=== PATIENT | female | born 1990 | race Caucasian/White ===

== ENCOUNTER 2020-10-28 17:20 | Emergency (ER) | payer OTHER, SELFPAY ==
[2020-10-28 17:35] VITALS: BP 126/87; PULSE 65; RESP 21; TEMP 37.3; O2SAT 100
--- NOTE | 2020-10-28 17:37 | ED.GENADULT ---
HPI - General Adult General Chief complaint: Dental/Oral Stated complaint: tooth pain Time Seen by Provider: 10/28/20 17:37 Source: patient Mode of arrival: ambulatory Limitations: no limitations History of Present Illness HPI narrative: 30-year-old female patient presents to the [facility] complaints of left upper dental pain for the past 2 to 3 days. Patient states she has had issues with dental infections before in the past. Patient was told by her dentist that she needed to have this tooth cut out by an oral surgeon but states it was not bothering her at the time so she never dealt with it. Patient states she has been taking ibuprofen for her pain. Denies any fevers, body aches or chills. Related Data Home Medications Medication Instructions Recorded Confirmed sertraline 50 mg PO DAILY 10/28/20 10/28/20 Allergies Allergy/AdvReac Type Severity Reaction Status Date / Time No Known Allergies Allergy Verified 10/28/20 17:29 Review of Systems Review of Systems: Narrative: CONSTITUTIONAL: Denies fever, chills, or sweats. EYES: Denies visual changes, redness, or discharge. ENT: Denies rhinorrhea, congestion, sore throat, or otalgia. Positive left upper dental pain x2 to 3 days CARDIOVASCULAR: Denies chest pain, palpitations, or edema. RESPIRATORY: Denies cough or dyspnea. GASTROINTESTINAL: Denies abdominal pain, nausea, vomiting, or diarrhea. GENITOURINARY: Denies dysuria or hematuria. SKIN: Denies rash or itching. MUSCULOSKELETAL: Denies back pain, joint pain, or myalgia. NEUROLOGIC: Denies headache, numbness, or weakness. PSYCHIATRIC: Denies anxiety or depression. PMFSH Comments At the time of my signature I agree with nursing past medical history, surgical, social, and family history. There is no relevant family history pertinent to the presenting complaint. Exam Narrative: Exam Narrative: GENERAL: Well-appearing, well-nourished, and in no acute distress. HEAD: Normocephalic, atraumatic. EYES: PERRLA and EOMI. ENT: Nares clear, no rhinorrhea or epistaxis. Mucous membranes moist. Patient has a broken tooth noted to the left upper bicuspid with surrounding erythema and dental caries present to this tooth. No obvious abscess noted at this time NECK: Supple. No lymphadenopathy CHEST: Clear to auscultation. No respiratory distress. HEART: Regular rate and rhythm. No murmur heard. Normal peripheral pulses. ABDOMEN: Soft, nontender, nondistended, normal active bowel sounds. EXTREMITIES: Normal range of motion. No edema. SKIN: Warm, dry, no rash. NEURO: No focal deficits. Alert and oriented x3. Course Vital Signs Vital signs: Vital signs reviewed Medical Decision Making Differential Diagnosis Differential Diagnosis: Differential diagnosis: Dental caries, periodontal disease, avulsed tooth, tooth infections, mandibular infection, Wilbur's angiana, upper tooth infection, dry socket, gingivitis, acute necrotizing ulcerative gingivitis, sialolithiasis. Discussed with patient that we will discharge her home with an antibiotic for the dental infection she can continue taking Tylenol and ibuprofen as needed for pain. We will also give her dental sheet for a referral for her to follow-up and have the tooth cut out. Patient verbalized understanding denies any other questions or concerns at this time. Critical Care Time Critical Care Time Critical Care Time: No Discharge Plan Discharge Clinical Impression: Toothache, Dental caries Patient Disposition: Home, Self-Care Condition: Stable Instructions: Antibiotic Form, Toothache (ED) Additional Instructions: Antibiotic as directed Avoid temperature extremes May apply heat or ice to the face Gentle brushing and flossing Alternate Tylenol and ibuprofen as needed for pain Follow-up with the dentist as soon as possible--see the list provided Prescriptions: New penicillin V potassium 500 mg tablet 500 mg PO Q8H 7 Days Qty: 21 RF: 0 No Action se
== END 2020-10-28 17:45 | disposition home or self-care (01) ==
PROVIDERS: Emergency Provider Nurse Practitioner Family; PCP Physician Assistant
DX: K02.9 Dental caries, unspecified (principal)
CPT/HCPCS: 99213; G0463

== ENCOUNTER 2021-01-09 09:00 | Emergency (ER) | payer OTHER, SELFPAY ==
[2021-01-09 09:30] VITALS: BP 121/91; PULSE 84; RESP 16; TEMP 36.5; O2SAT 99
--- NOTE | 2021-01-09 09:31 | ED.GENADULT ---
HPI - General Adult General Chief complaint: Upper Respiratory Infection Stated complaint: Sore Throat Time Seen by Provider: 01/09/21 09:31 Source: patient and RN notes reviewed Mode of arrival: ambulatory Limitations: no limitations History of Present Illness HPI narrative: 30-year-old female presents with complaints of sore throat for 1 day. Lisa reports awaken with sore throat and believes she has Strep throat. No treatment. No high fevers, drooling, neck or throat swelling. Pain is bilateral. Hurts to swallow. Exacerbation factors consist of vaping, eating, and drinking. Rhinorrhea and nasal congestion. No voice change. No nausea, vomiting, or abdominal pain. Tolerating liquids well. Denies dyspnea, difficulty swallowing, jaw pain, dental pain, facial pain, foreign body sensation, and rash. LMP 12/11/2020. Remains active. The patient reports she received her COVID-19 vaccine. The patient reports she was diagnosed with COVID-05 June 2020. The patient reports she is not waiting for the results of a COVID-19 lab test. The patient reports she do not have chills, weakness, or fatigue. The patient reports she do not have a new or worsening cough or shortness of breath. Denies chest pain. The patient reports she do not have any loss of taste or smell, nausea, and diarrhea. Denies recent traveling. Denies concerns for COVID-19 or exposures been home with limited outdoor exposure except for essential household needs, work, and return home. At this time, patient is not suspected of having COVID-19. Some parts of this dictation were generated by voice recognition software and may contain typographical and/or grammatical inaccuracies. Related Data Allergies Allergy/AdvReac Type Severity Reaction Status Date / Time No Known Allergies Allergy Verified 01/09/21 09:17 Review of Systems Review of Systems: Narrative: CONSTITUTIONAL: Denies fever, chills, sweats. EYES: Denies visual changes, redness, discharge. ENT: Denies otalgia. Complains of sore throat, congestion. CARDIOVASCULAR: Denies chest pain, palpitations, edema. RESPIRATORY: Denies dyspnea, wheezing, cough. GASTROINTESTINAL: Denies abdominal pain, nausea, vomiting, diarrhea. SKIN: Denies rash or itching. MUSCULOSKELETAL: Denies acute back pain, joint pain, or myalgia. NEUROLOGIC: Denies numbness or focal weakness. PSYCHIATRIC: Denies anxiety or depression. All systems reviewed & are unremarkable except as noted in HPI and below. [facility] Past Medical History Medical History (Updated 01/10/21 @ 00:00 by James Barnard) Anxiety Attention deficit disorder delivery delivered Depression Surgical History Surgical History (Updated 01/09/21 @ 10:48 by JANELL Brantley) H/O section X3 History of cholecystectomy Hx of appendectomy Family History Family History (Updated 01/09/21 @ 10:48 by JANELL Brantley) Father Cancer Mother Anemia Social History Social History (Updated 01/09/21 @ 10:49 by JANELL Brantley) Smoking status: Current every day smoker Tobacco type: e-cigarettes/vaping Second hand tobacco smoke exposure: Yes Additional smoking assessment comments: Lisa smokes cigarettes prior to e-cigarette Alcohol intake: current Substance use: never Living arrangements: with family Occupation/Education: occupation Gender identity (if verbalized by the patient): Female Sexual Orientation (if Verbalized by the Patient): Straight or Heterosexual Comments At time of signature, agree with nurse past medical, surgical, social, and family history. There is no relevant family history pertinent to the presenting complaint. Exam Narrative: Exam Narrative: GENERAL: This is a well-nourished, well-developed patient, in no apparent distress. Speaks in full sentences without deficits and ambulates with steady gait without dyspnea. HEAD: Normocephalic, atraumatic. EYES: PERRL. Sclera cl
[2021-01-10 17:45] LABS: SARS-CoV-2 RNA PCR Negative
== END 2021-01-09 10:31 | disposition home or self-care (01) ==
PROVIDERS: Emergency Provider Nurse Practitioner Family
DX: J32.9 Chronic sinusitis, unspecified (principal); Z20.822 Contact with and (suspected) exposure to COVID-19; F17.200 Nicotine dependence, unspecified, uncomplicated
CPT/HCPCS: 87081; 87804; 87880; 99203; C9803; G0463; U0003; U0005

== ENCOUNTER 2022-10-22 17:13 | Emergency (ER) | payer OTHER, SELFPAY ==
[2022-10-22 17:19] VITALS: BP 145/81; PULSE 87; RESP 16; TEMP 37.1; O2SAT 100
--- NOTE | 2022-10-22 17:23 | ED.DENTAL ---
HPI - Dental/Oral General Chief complaint: Dental/Oral Stated complaint: tooth pain Time Seen by Provider: 10/22/22 17:25 Source: patient Mode of arrival: ambulatory History of Present Illness HPI Narrative: 32-year-old female presented for complaint of left upper dental pain over the last few days. She endorses several years ago pulling out part of that tooth herself, and has had fragments remaining without causing trouble. She endorses swelling and ?a bubble? to the upper gumline with tenderness. Denies nausea, diarrhea, fevers or chills. She is taking occasional ibuprofen. She states the pain is moderate but wanted to get started on medicine before it gets to bed. She is scheduled to follow-up with her dentist towards the end of the month. MD Complaint: tooth pain Related Data Allergies Allergy/AdvReac Type Severity Reaction Status Date / Time No Known Allergies Allergy Unverified 10/07/22 15:27 Review of Systems Review of Systems: CONSTITUTIONAL: Denies body aches, fever, chills ENT: Denies rhinorrhea, congestion, sore throat, or otalgia. Reports dental pain CARDIOVASCULAR: Denies chest pain, palpitations RESPIRATORY: Denies cough or dyspnea. SKIN: Denies rash, itching, or wounds. MUSCULOSKELETAL: Denies myalgia. NEUROLOGIC: Denies headache, numbness, tingling, or weakness. [facility] Past Medical History Medical History Anxiety Anxiety Attention deficit disorder Attention deficit disorder delivery delivered delivery delivered Depression Depression Surgical History Surgical History H/O section X3 H/O section X3 History of cholecystectomy History of cholecystectomy Hx of appendectomy Hx of appendectomy Family History Family History Father Cancer Mother Anemia Social History Social History Smoking status: Current every day smoker Tobacco type: e-cigarettes/vaping Second hand tobacco smoke exposure: Yes Additional smoking assessment comments: Lisa smokes cigarettes prior to e-cigarette Alcohol intake: current Substance use: never Gender identity (if verbalized by the patient): Female Sexual Orientation (if Verbalized by the Patient): Straight or Heterosexual Comments At time of signature, I have reviewed and agree with nursing past medical, surgical, social and family history unless otherwise noted. Please see nursing chart for further information. There is no relevant family history pertinent to the presenting complaint Exam Narrative: GENERAL: Appears in pain; no acute distress. HEAD: Normocephalic, atraumatic. EYES: EOMI. No redness or drainage. Conjunctivae normal. ENT: Dental pain location of #14, fragments of tooth remain in gum, mild surrounding erythema and swelling, tender to palpation, no active drainage; Mucous membranes pink and moist. TMs normal bilaterally. Throat normal. Uvula midline. NECK: Normal AROM. No lymphadenopathy. CHEST: No respiratory distress. Clear to auscultation. HEART: Regular rate and rhythm. No murmur appreciated. SKIN: Warm, dry, no rash. Normal skin turgor. Course Course Emergency Course: Patient is aware of diagnosis, understands and agrees to treatment plan. Anticipatory guidance given. Patient agrees to follow-up as directed and is aware of reasons to seek care at the emergency department. Portions of this record may have been created with voice recognition software Level of Care: Express Care Visit Vital Signs Vital signs: Vital Signs Temperature 98.8 F 10/22/22 17:19 Pulse Rate 87 10/22/22 17:19 Respiratory Rate 16 10/22/22 17:19 Blood Pressure 145/81 H 10/22/22 17:19 Pulse Oximetry 100 10/22/22 17:19 Oxygen Delivery Room Air 10/22/22 17:
== END 2022-10-22 17:37 | disposition home or self-care (01) ==
PROVIDERS: Emergency Provider Nurse Practitioner Family
DX: K04.7 Periapical abscess without sinus (principal); F17.290 Nicotine dependence, other tobacco product, uncomplicated
CPT/HCPCS: 99213; G0463

== ENCOUNTER 2024-03-09 07:59 | Outpatient (CLI) | payer OTHER, SELFPAY ==
--- NOTE | 2024-03-09 08:01 | EST_ITS ---
Patient Info Name: Lisa Stone Age: 33 years : 1990 Gender: Female Ht: 65 in Wt: 161 lbs BSA: 1.85 m2 HR: 80 bpm BP: 119 / 80 mmHg Heart Rhythm: Sinus Rhythm Exam Date: 03/09/2024 8:11 AM Exam Location: Echo Lab Patient Status: Outpatient Admit Date: 03/09/2024 Staff Ordering Physician: Elvis Mcfarlane DO Attending Provider: Elvis Mcfarlane DO Exercise Technologist: Joselin Driver CT Exercise Physician: Elvis Mcfarlane DO Exam Type: CA stress test treadmill Study Info Indications I47.2 - Ventricular tachycardia A treadmill exercise stress test was performed. Summary 1. 1. Negative Mike exercise stress test for ischemic ST changes by ECG criteria. 2. 2. Good functional capacity, achieving 10 METs of workload. 3. 3. Appropriate HR response to exercise. 4. 4. Appropriate HR recovery at 1 minute post exercise. 5. 5. No imaging with stress testing. 6. 6. Patient informed of the above results. Protocol: Mike Stress ECG Details Stage: REST Duration (min): 0 min : 49 sec Speed (mph): 0.0 Grade (%): 0 HR (bpm): 84 SBP (mmHg): 119 DBP (mmHg): 80 METS: --- Stage: REST Duration (min): 5 min : 15 sec Speed (mph): 0.0 Grade (%): 0 HR (bpm): 101 SBP (mmHg): 119 DBP (mmHg): 80 METS: --- Stage: STAGE 1 Duration (min): 1 min : 0 sec Speed (mph): 1.7 Grade (%): 10 HR (bpm): 110 SBP (mmHg): 119 DBP (mmHg): 80 METS: --- Stage: STAGE 1 Duration (min): 2 min : 0 sec Speed (mph): 1.7 Grade (%): 10 HR (bpm): 117 SBP (mmHg): 119 DBP (mmHg): 80 METS: --- Stage: STAGE 1 Duration (min): 3 min : 0 sec Speed (mph): 1.7 Grade (%): 10 HR (bpm): 125 SBP (mmHg): 150 DBP (mmHg): 93 METS: --- Stage: STAGE 2 Duration (min): 1 min : 0 sec Speed (mph): 2.5 Grade (%): 12 HR (bpm): 137 SBP (mmHg): 150 DBP (mmHg): 93 METS: --- Stage: STAGE 2 Duration (min): 2 min : 0 sec Speed (mph): 2.5 Grade (%): 12 HR (bpm): 139 SBP (mmHg): 152 DBP (mmHg): 92 METS: --- Stage: STAGE 2 Duration (min): 3 min : 0 sec Speed (mph): 2.5 Grade (%): 12 HR (bpm): 146 SBP (mmHg): 152 DBP (mmHg): 92 METS: --- Stage: STAGE 3 Duration (min): 1 min : 0 sec Speed (mph): 3.4 Grade (%): 14 HR (bpm): 160 SBP (mmHg): 158 DBP (mmHg): 90 METS: --- Stage: STAGE 3 Duration (min): 2 min : 0 sec Speed (mph): 3.4 Grade (%): 14 HR (bpm): 162 SBP (mmHg): 158 DBP (mmHg): 90 METS: --- Stage: STAGE 3 Duration (min): 2 min : 0 sec Speed (mph): 3.4 Grade (%): 14 HR (bpm): 162 SBP (mmHg): 158 DBP (mmHg): 90 METS: --- Stage: RECOVERY Duration (min): 0 min : 59 sec Speed (mph): 0.0 Grade (%): 0 HR (bpm): 134 SBP (mmHg): 160 DBP (mmHg): 87 METS: --- Stage: RECOVERY Duration (min): 1 min : 59 sec Speed (mph): 0.0 Grade (%): 0 HR (bpm): 112 SBP (mmHg): 160 DBP (mmHg): 87 ME
== END 2024-03-09 08:00 | disposition home or self-care (01) ==
PROVIDERS: PCP Physician Assistant; Visit Provider Internal Medicine Cardiovascular Disease
DX: I47.29 Other ventricular tachycardia (principal)
CPT/HCPCS: 93017

== ENCOUNTER 2024-05-24 09:47 | Outpatient (CLI) | payer OTHER, SELFPAY ==
--- NOTE | 2024-05-24 09:58 | ECHO_ITS ---
Patient Info Name: Lisa Stone Age: 33 years : 1990 Gender: Female Ht: 65 in Wt: 170 lbs BSA: 1.90 m2 HR: 88 bpm BP: 110 / 85 mmHg Heart Rhythm: Sinus Rhythm Technical Quality: Good Exam Date: 05/24/2024 10:09 AM Exam Location: Echo Lab Patient Status: Outpatient Admit Date: 05/24/2024 Staff Ordering Physician: Elvis Mcfarlane DO Supervisor Lens Generating: Mauricio Dawn RDCS Attending Provider: Elvis Mcfarlane DO Referring Physician: Denys KARIMI; Exam Type: CA echo doppler color flow Study Info Indications - other ventricular tachycardia Complete two-dimensional, color flow and Doppler transthoracic echocardiogram is performed. Summary 1. Complete two-dimensional, color flow and Doppler transthoracic echocardiogram is performed. 2. Left ventricular chamber dimension is normal. 3. Left ventricular systolic function is normal, estimated at 60-65%. 4. The left ventricular diastolic function is normal. 5. E/e' 6 is not elevated. 6. There is trace tricuspid valve regurgitation. 7. No pulmonary hypertension, estimated pulmonary arterial systolic pressure is 16 mmHg. Left Ventricle E/e' 6 is not elevated. Left ventricular chamber dimension is normal. Left ventricular systolic function is normal, estimated at 60-65%. The left ventricular diastolic function is normal. Right Ventricle Right ventricular systolic function is normal and with normal TAPSE 3.0 cm. Right ventricular chamber dimension is normal. Left Atria Left atrial chamber dimension is normal. Right Atria Right atrial chamber dimension is normal. Aortic Valve The aortic valve is trileaflet. There is no aortic valve stenosis. There is no aortic valve regurgitation. Pulmonic Valve There is no pulmonic regurgitation. Mitral Valve There is no mitral valve stenosis. There is no mitral valve regurgitation. Tricuspid Valve There is trace tricuspid valve regurgitation. No pulmonary hypertension, estimated pulmonary arterial systolic pressure is 16 mmHg. Pericardium/Pleural There is no pericardial effusion. Inferior Vena Cava Normal inferior vena cava with >50% collapse upon inspiration consistent with normal right atrial pressure, 5 mmHg. Aorta The aortic root size at the sinus of Valsalva is normal. Left Ventricular Outflow Tract Name Value Normal LVOT 2D LVOT Diameter 1.9 cm LVOT Doppler LVOT Peak Gradient 3 mmHg LVOT Mean Gradient 2 mmHg LVOT VTI 17 cm LVOT VTI/AV VTI Ratio 1.2 LVOT Stroke Volume 48 ml LVOT CO 4.0 l/min LVOT CI 2.1 l/min/m2 Pulmonic Valve Name Value Normal PV Doppler PV Peak Gradient 3 mmHg Mitral Valve Name Value No
== END 2024-05-24 09:48 | disposition home or self-care (01) ==
PROVIDERS: PCP Physician Assistant; Visit Provider Internal Medicine Cardiovascular Disease
DX: I47.29 Other ventricular tachycardia (principal)
CPT/HCPCS: 93306

== ENCOUNTER 2024-09-20 14:12 | Outpatient (CLI) | payer OTHER, SELFPAY ==
--- NOTE | ~2024-09-20 | US_ITS ---
EXAMINATION: US soft tissue chest DATE: 09/20/2024 14:27 INDICATION: Lipoma left chest wall. TECHNIQUE: Multiple grayscale and Doppler ultrasound images of the chest were obtained. COMPARISON: Chest CT 09/22/2015 FINDINGS: There is no abnormal mass in the patient's area of concern in left anteroinferior chest wal l. IMPRESSION: 1. No abnormal mass in the patient's area of concern in left anteroinferior chest wall. Reviewed, dictated and finalized at location A. ER MACHINE OPERATOR IMPRESSION: 1. No abnormal mass in the patient's area of concern in left anteroinferior [facility] wall.
== END 2024-09-20 14:13 | disposition home or self-care (01) ==
LOC: MICIMG 14:12
PROVIDERS: PCP Physician Assistant; Visit Provider Physician Assistant
DX: D17.1 Benign lipomatous neoplasm of skin and subcutaneous tissue of trunk (principal)
CPT/HCPCS: 76604

== ENCOUNTER 2024-10-05 17:23 | Emergency (ER) | payer OTHER, SELFPAY ==
[2024-10-05 17:24] VITALS: BP 140/96; PULSE 90; RESP 16; TEMP 36.5; O2SAT 99
--- NOTE | 2024-10-05 18:26 | ED.ABDPAIN ---
HPI - Abdominal Pain General Chief Complaint: Abdominal Pain Stated Complaint: abd pain Time Seen by Provider: 10/05/24 18:26 Focused HPI: Patient is a 34-year-old female who presents the ED with report of lower abdominal pain. Patient reports having intermittent lower abdominal pain for about 1 week. States pain is often described as a cramping pain, worse with eating/drinking. States it is also worse at night and feels more like a stabbing pain. Reports nausea associated with the pain. Also reports feeling constipated. Is only able to pass small amounts of stool at a time. Has been taking stool softeners w/o relief. Denies fevers, vomiting, urinary complaints. GENERAL: Well-appearing, well-nourished, and in no acute distress. HEAD: Normocephalic, atraumatic. CHEST: Clear to auscultation. ?No respiratory distress. HEART: Regular rate and rhythm.? ABD: Mild tenderness to palpation throughout lower abdomen. Normoactive BS NEURO: ?Alert and oriented x3. Patient screened in triage and initial orders placed.? ?Additional care and disposition to be based upon?diagnostic testing and treatment. Source: patient Mode of arrival: ambulatory Limitations: no limitations Related Data Allergies Allergy/AdvReac Type Severity Reaction Status Date / Time poison oak extract Allergy Unknown Unknown Verified 06/16/24 14:59 [facility] Past Medical History Medical History Anxiety Anxiety Attention deficit disorder Attention deficit disorder delivery delivered delivery delivered Depression Depression Surgical History Surgical History H/O section X3 H/O section X3 History of cholecystectomy History of cholecystectomy Hx of appendectomy Hx of appendectomy Family History Family History Father Cancer Mother Anemia Social History Social History (Updated 06/16/24 @ 14:59 by Hali Thomas [facility]) Smoking status: Former smoker Tobacco type: e-cigarettes/vaping Second hand tobacco smoke exposure: Yes Additional smoking assessment comments: Lisa smokes cigarettes prior to e-cigarette Alcohol intake: current Substance use: never Do You Feel Safe in your Home?: Yes Lack of Transportation: No Lack of Food: Never True Current Housing: I Have Housing Concerned About Future Housing: Decline to Answer Difficulty Paying Gas/Electric Bills: No Difficulty Paying for Meds: No Currently Unemployed: No Education: Trade/Vocational Certificate Difficulty w/ Childcare or Family Care: No Living arrangements: with family Occupation/Education: occupation Gender identity (if verbalized by the patient): Female Sexual Orientation (if Verbalized by the Patient): Straight or Heterosexual Course Vital Signs Vital signs: Vital Signs Temperature 97.7 F 10/05/24 17:24 Pulse Rate 90 10/05/24 17:24 Respiratory Rate 16 10/05/24 17:24 Blood Pressure 140/96 H 10/05/24 17:24 Pulse Oximetry 99 10/05/24 17:24 Temperature 97.7 F 10/05/24 17:24 Pulse Rate 90 10/05/24 17:24 Respiratory Rate 16 10/05/24 17:24 Blood Pressure 140/96 H 10/05/24 17:24 Pulse Oximetry 99 10/05/24 17:24 MDM - Abdominal Pain MDM Narrative Medical decision making narrative: MSE by NOA in triage. Discharge Plan Discharge Instructions: Antibiotic Form Patient Language: Slovak Prescriptions: No Action metoprolol succinate 25 mg tablet extended release 24 hr 12.5 mg PO DAILY Qty: 45 2RF Follow-up/Referrals: Emeka,NIKIA Henry [Primary Care Provider] -
--- NOTE | 2024-10-05 19:42 | ED.GENADULT ---
HPI - General Adult General Chief complaint: Abdominal Pain Stated complaint: abd pain Time Seen by Provider: 10/05/24 18:26 Source: patient Mode of arrival: ambulatory Limitations: no limitations History of Present Illness HPI narrative: This is a 34-year-old female presenting ED with chief complaint of abdominal pain. Patient has not had a bowel movement 1 week. She is having intermittent crampy abdominal pain. She has had some nausea but no vomiting. She is still passing gas. She is still eating and drinking food. Patient has been taking Colace. Patient has had multiple abdominal surgeries. No abdominal distension. No pain at this time. No other complaints patient has 2 sick children at home with GI symptoms. Related Data Allergies Allergy/AdvReac Type Severity Reaction Status Date / Time poison oak extract Allergy Unknown Unknown Verified 06/16/24 14:59 [facility] Past Medical History Medical History Attention deficit disorder Depression Anxiety delivery delivered Attention deficit disorder Depression Anxiety delivery delivered Surgical History Surgical History History of cholecystectomy Hx of appendectomy H/O section X3 History of cholecystectomy Hx of appendectomy H/O section X3 Family History Family History Father Cancer Mother Anemia Social History Social History Smoking status: Former smoker Tobacco type: e-cigarettes/vaping Second hand tobacco smoke exposure: Yes Additional smoking assessment comments: Lisa smokes cigarettes prior to e-cigarette Alcohol intake: current Substance use: never Do You Feel Safe in your Home?: Yes Lack of Transportation: No Lack of Food: Never True Current Housing: I Have Housing Concerned About Future Housing: Decline to Answer Difficulty Paying Gas/Electric Bills: No Difficulty Paying for Meds: No Currently Unemployed: No Education: Trade/Vocational Certificate Difficulty w/ Childcare or Family Care: No Living arrangements: with family Occupation/Education: occupation Gender identity (if verbalized by the patient): Female Sexual Orientation (if Verbalized by the Patient): Straight or Heterosexual Exam Narrative: APPEARANCE: No apparent distress. Head: atraumatic. EYES: EOMI, NOSE: Atraumatic NECK: Trachea midline RESPIRATORY: No increased rate of breathing, CTAB CARDIOVASCULAR: RRR, ABDOMINAL: Abdomen is soft nontender with no guarding rebound, no CVA tenderness MUSCULOSKELETAl: No obvious deformities NEURO: Alert. Moving 4/4 extremities SKIN:: Warm, dry. Normal color PSYCHIATRIC: Normal affect Course Vital Signs Vital signs: Vital Signs Temperature 97.7 F 10/05/24 17:24 Pulse Rate 90 10/05/24 17:24 Respiratory Rate 16 10/05/24 17:24 Blood Pressure 140/96 H 10/05/24 17:24 Pulse Oximetry 99 10/05/24 17:24 Temperature 97.7 F 10/05/24 17:24 Pulse Rate 90 10/05/24 17:24 Respiratory Rate 16 10/05/24 17:24 Blood Pressure 140/96 H 10/05/24 17:24 Pulse Oximetry 99 10/05/24 17:24 Medical Decision Making MDM Narrative Medical decision making narrative: -Course: 34-year-old female with crampy. She has not bowel movement 1 week. Her abdominal exam is soft non guarding with no tender rebound. she is very well-appearing. She is tolerating p.o.. Vital signs are stable. I am not concerned for small bowel obstruction this time. patient's symptoms are consistent with constipation. We discussed risks and benefits of a CT scan and lab work and we have decided not to obtain them at this time. Patient will go home and use stool softeners to see if her symptoms improve. If they get worse she will return to the ED. -DDX includes but is not limited to: Constipation viral syndrome small-bowel obstruction, diverticulitis -Co-morbidities complicating care: anxiety -Shared decision making / Disposition:discharged. Vital Signs Vital Signs: Vital Signs Temperature 97.7 F 10/05/24 17:24 Pulse Rate 90 10/05/24 17:24 Respiratory Rate 16 10/05/24 17:24 Blood Pressure 140/96 H 10/05/24 17:24 Pulse Oximetry 99 10/05/24 17:24 Temperature 97.7 F 10/05/24 17:24 Pulse Rate 90 10/05/24 17:24 Respiratory Rate 16 10/05/24 17:24 Blood Pressure 140/96 H 10/05/24 17:24 Pulse Oximetry 99 10/05/24 17:24 Discharge Plan Discharge Clinical Impression: Constipation Patient Disposition: Home, Self-Care Condition: Stable Instructions: Antibiotic Form, Constipation (DC) Additional Instructions: please make sure you are drinking plenty of fluids. You can use MiraLax or add fiber to her diet to help with constipation. Motrin Tylenol, use for pain. If you develop severe abdominal pain, nausea vomiting, or passing gas please return to ED for re-evaluation. Patient Language: Armenian Prescriptions: No Action metoprolol succinate 25 mg tablet extended release 24 hr 12.5 mg PO DAILY Qty: 45 2RF Follow-up/Referrals: Emeka,NIKIA Henry [Primary Care Provider] - 1 Week
[2024-10-05 19:57] VITALS: BP 136/90; PULSE 84; RESP 13; O2SAT 99
[2024-10-05 19:58] VITALS: BP 136/90; PULSE 84; RESP 13; O2SAT 99
== END 2024-10-05 20:01 | disposition home or self-care (01) ==
LOC: ANHED 19:49
PROVIDERS: Emergency Provider Emergency Medicine; PCP Physician Assistant
DX: K59.00 Constipation, unspecified (principal); Z87.891 Personal history of nicotine dependence; F32.A Depression, unspecified; F41.9 Anxiety disorder, unspecified
CPT/HCPCS: 99281